=== PATIENT | male | born 1950 | race Caucasian/White ===

== ENCOUNTER → 2023-12-17 12:45 | Outpatient (REF) | payer MEDICARE, SELFPAY | LOC: HWRCS 12:45 | PROVIDERS: ATTENDING PHYSICIAN Internal Medicine Cardiovascular Disease; FAMILY PHYSICIAN Internal Medicine | DX: I42.8 Other cardiomyopathies (principal); I47.20 Ventricular tachycardia, unspecified | CPT/HCPCS: 93306 ==